=== PATIENT | female | born 1935 | race Caucasian/White ===

== ENCOUNTER → 2023-04-22 06:24 | Day surgery (SDC) | payer OTHER, SELFPAY | LOC: GI 06:24 | PROVIDERS: ATTENDING PHYSICIAN Specialist | DX: K20.90 Esophagitis, unspecified without bleeding (principal); R13.10 Dysphagia, unspecified | CPT/HCPCS: 43239; 88305 ==

== ENCOUNTER → 2023-06-08 11:22 | Outpatient (REF) | payer OTHER, SELFPAY | LOC: WDC 11:22 | PROVIDERS: ATTENDING PHYSICIAN Internal Medicine | DX: Z12.31 Encounter for screening mammogram for malignant neoplasm of breast (principal) | CPT/HCPCS: 77063; 77067 ==

== ENCOUNTER → 2024-02-12 14:14 | Outpatient (REF) | payer OTHER, SELFPAY | LOC: RAD 14:14 | PROVIDERS: ATTENDING PHYSICIAN Internal Medicine Rheumatology; FAMILY PHYSICIAN Hospitalist | DX: M81.0 Age-related osteoporosis without current pathological fracture (principal) | CPT/HCPCS: 77080 ==

== ENCOUNTER → 2024-06-20 11:41 | Outpatient (REF) | payer OTHER, SELFPAY | LOC: RAD 11:41 | PROVIDERS: ATTENDING PHYSICIAN Internal Medicine Rheumatology; FAMILY PHYSICIAN Hospitalist | DX: M17.10 Unilateral primary osteoarthritis, unspecified knee (principal) | CPT/HCPCS: 73560; 73565 ==

== ENCOUNTER 2024-10-08 16:53 | Emergency (ER) | payer OTHER, SELFPAY ==
[2024-10-08 17:02] VITALS: BP 170/79
--- NOTE | 2024-10-08 20:28 | ED.GENMED ---
History of Present Illness
General
Chief Complaint: Fall
Source: patient
Exam Limitations: none
Time Seen by Provider: 10/08/24 20:13
History of Present Illness
History of Present Illness:
88yoF with a history of hypothyroidism and prior thyroid resection presenting for evaluation after a fall about 5 hours ago. Patient was at a shopping center outside when she did not see a flower bed and tripped. She landed on her face and struck
the sidewalk. No LOC. Patient is presenting with facial abrasions. She does not take any blood thinners. Tetanus shot is up to date.
Past History
Past History
ED Past Medical History: Hypothyroidism
ED Past Surgical History: Appendectomy, Cholecystectomy and Gynecological
Social History
Tobacco: Non-smoker
Drug: None
Personal:
Phy Exam
General Physical Exam
General Presentation: well appearing and no apparent distress
General Skin: warm and dry
General Habitus: normal
General Mental: alert
ENT Exam
ENT Exam: other (Scattered facial abrasions. Approx 2cm laceration noted to upper lip with some venous oozing. Developing L periorbital ecchymosis. +Nasal tenderness and swelling)
Additional ENT: No cervical spine tenderness
Eye Exam
Eye Exam: PERRL
Pulmonary Exam
Pulmonary Exam: no respiratory distress
Neurological Exam
Neurological Exam: alert
[place] Coma Scale
Eye Opening: Spontaneous
Verbal Response: Oriented
Motor Response: Obeys Commands
GCS Total Score: 15
Musculoskeletal Exam
Musculoskeletal Exam: other (Ecchymosis to L foot)
Skin Exam
Skin Exam: warm/dry
Psychiatric Exam
Psychiatric Exam: normal mood/affect
Course
Orders/Labs/Results
Orders:
Orders
10/08/24 17:04
CT Cervical Spine W/o Iv Contr Urgent
Comment:
Reason For Exam: fall
CT Facial Bones W/o Iv Contras Urgent
Comment:
Reason For Exam: fall
CT Head W/o Iv Contrast Urgent
Comment:
Reason For Exam: fall
10/08/24 20:27
Lidocaine/Epinephrine/Tetracai [Let Topical Anesthetic Gel] 3 ml TOPICAL NOW STA
10/08/24 21:07
Cephalexin Monohydrate [Keflex] 500 mg PO NOW STA
Vital Signs
Initial and Last Documented VS:
Initial Vital Signs
Temp Pulse Resp BP Pulse Ox
98.8 F 93 19 170/79 97
10/08/24 17:02 10/08/24 17:02 10/08/24 17:02 10/08/24 17:02 10/08/24 17:02
Last Documented Vital Signs
Temp Pulse Resp BP Pulse Ox
98.8 F 84 18 170/79 98
10/08/24 17:02 10/08/24 21:42 10/08/24 21:42 10/08/24 17:02 10/08/24 21:42
Procedures
Laceration Closure
Upper Lip:
Status of Wound: clean
Size of Wound in cm: 2
Description of Wound Edges: ragged
Preparation: cleaned with saline
Anesthesia: Topical-LET
Wound exploration: explored to base- no FB
Type of Closure: single layer closure
Skin Closure Material: 6-0 nylon
Number of sutures: 2
MDM/Problems Addressed
Differential Diagnosis Includes:
88yoF presenting with facial trauma after mechanical fall. Scattered abrasions and ecchymosis noted. There is a 2cm upper lip laceration that is mildly gaping. Differential diagnosis includes: fracture, soft tissue injury, intracranial hemorrhage
CT head, facial bones, and cervical spine obtained in triage. Hairline L nasal bone fracture present without other fractures/hemorrhage. Incidental findings of lung nodule and R thyroid nodule noted. Patient informed of incidentals and was provided
with a copy of the radiology report. Lip laceration repaired as above. She does have L foot ecchymosis on exam but no associated tenderness and has been ambulating well. Offered x-rays of foot which she declines. She was started on a course of
Keflex. She was instructed to have sutures removed in 5 days and return to the ER with any signs of infection.
*Pulse Oximetry
SaO2: 97
Oxygen Mode of Delivery: Room air
Patient hypoxic: no (97%)
*Critical Care Note
Total Time (30-74mins, 75-104mins- exclusive of procedures): Not Applicable
ED Attending Note
-
Portions of this chart may have been created with voice recognition software.� Occasional wrong word or��sound alike� substitutions may have occurred due to the inherent limitations of voice recognition software.
Discharge Plan
Departure
Patient Disposition: Home (Routine Discharge)
Date of Disposition: 10/08/24
Time of Disposition: 21:07
Patient with high blood pressure during this ER visit?: Yes
Discharge Problem:
Ground-level fall, Fracture of nasal bone, Facial abrasion, Lip laceration, Incidental lung nodule
Instructions: Laceration Repair With Stitches (DC), Nose Fracture ED
Prescriptions:
New
cephalexin 500 mg capsule
500 mg PO Q6H 5 Days Qty: 20 0RF
No Action
multivitamin Tablet
1 tab PO DAILY
levothyroxine 25 mcg Tablet
25 mcg PO DAILY
acetaminophen [Tylenol Arthritis] 650 mg Tablet Extended Release
1,300 mg PO Q12H
acetaminophen 500 mg Capsule
1,000 mg PO Q6H PRN (Reason: pain)
cholecalciferol (vitamin D3) [Vitamin D3] 25 mcg (1,000 unit) Capsule
25 mcg PO DAILY
Prolia 60 mg/mL Syringe
60 mg SC [id number]
cranberry
1 dose PO DAILY
mupirocin 2 % ointment
1 applic topical BID Qty: 1 0RF
Referrals:
Nichol Deshpande MD [Family Provider, Internal Medicine]
Activity Restrictions/Additional Instructions:
Keep wounds clean and dry. Take antibiotics as prescribed. Sutures need to be removed in 5 days.
Please follow-up with your family doctor next week. Return to the ER with any signs of infection or worsening symptoms.
Interventions
Interventions:
*Risk Screen - Suicide Last Done: 10/08/24 17:02
*General Assessment Last Done: 10/08/24 21:43
*Neglect/Abuse Screening Last Done: 10/08/24 17:02
*ED- Fall Risk Assessment Last Done: 10/08/24 17:02
*ED COVID-19 Vaccine History Last Done: 10/08/24 20:33
*Nursing Disposition Last Done: 10/08/24 21:43
ED-Musculoskeletal Assessment Last Done: 10/08/24 20:32
ED- Neurological Assessment Last Done: 10/08/24 20:32
ED-Skin Assessment Last Done: 10/08/24 20:32
Discharge Date and Time
Discharge Date/Time: 10/08/24 21:44
Print Language: MALAY
[2024-10-08] MEDS: LET TOPICAL ANESTHETIC GEL 3 ML TOPICAL (20:31)
[2024-10-08] MEDS: KEFLEX 500 MG PO (21:34)
== END 2024-10-08 21:44 | disposition home or self-care (01) ==
LOC: EMR 16:53
PROVIDERS: EMERGENCY PHYSICIAN Emergency Medicine; FAMILY PHYSICIAN Hospitalist
DX: S02.2XXA Fracture of nasal bones, initial encounter for closed fracture (principal); S00.81XA Abrasion of other part of head, initial encounter; S01.511A Laceration without foreign body of lip, initial encounter; W18.09XA Striking against other object with subsequent fall, initial encounter; Y92.513 Shop (commercial) as the place of occurrence of the external cause; R91.1 Solitary pulmonary nodule; E03.9 Hypothyroidism, unspecified; Z90.49 Acquired absence of other specified parts of digestive tract
CPT/HCPCS: 12011; 99284; 70450; 70486; 72125

== ENCOUNTER 2024-10-31 06:05 | Day surgery (SDC) | payer OTHER, SELFPAY ==
--- NOTE | 2024-10-03 10:26 | CM ---
Demographics: Confirmed
Living situation: lives with significant other and daughter will be available
Support Person Post Operatively: Significant other, Steve
History of
VN: No
SNF: No
Outpatient: [facility], appointment made for 11.03
Has patient purchased required equipment: yes, can, walker
PCP: Jeramy Beltrán
Pharmacy: [facility]
Post Operative Discharge Plan: Home with [facility], and then transition to [facility]
[2024-10-10 14:05] VITALS: BMI 24.3
[2024-10-10 14:17] LABS: Hematocrit 37.5 % (37.0-47.0); Hemoglobin 12.0 g/dL (12.0-16.0); Mean Corp Hgb Conc. 32.0 g/dL (33.0-37.0); Mean Corpuscular Volume 92.1 fL (81.0-99.0); Platelet Count 124 10^3/uL (130-400); Red Cell Dist. Width 13.1 % (11.5-14.5)
[2024-10-10 14:37] LABS: ALT (SGPT) 17 U/L (0-35); AST (SGOT) 22 U/L (14-36); Albumin 4.0 g/dl (3.5-5.0); Alkaline Phosphatase 60 U/L (38-126); Blood Urea Nitrogen 26 mg/dl (7-17); Calcium 11.1 mg/dl (8.4-10.2); Carbon Dioxide 28 mmol/L (22-30); Chloride 105 mmol/L (98-107); Estimated Creatinine Clearance 48 ml/min; Glucose 129 mg/dl (70-99); Potassium 4.6 mmol/L (3.5-5.1); Sodium 138 mmol/L (135-145); Total Protein 6.8 g/dl (6.3-8.2); eGFR > 60.00
[2024-10-10 16:07] LABS: Vitamin D, 25-OH*** 52.8 ng/mL (30-80)
[2024-10-10 16:21] LABS: TSH 0.53 uIU/ml (0.47-4.68)
[2024-10-11 09:00] LABS: Glycohemoglobin (HgbA1c) 6.3 % (4.0-5.6)
[2024-10-11 16:17] VITALS: BMI 24.3
--- NOTE | 2024-10-17 10:27 | VNURNOTE ---
Patient is scheduled for an elective R TKA on 10/31 - she is a same day patient with Dr Yung. Spoke with patient prior to surgery. Introduced role of [facility] Liaison. Patient reports that she lives with sig other in a MULTI story home.
There is a bathroom and bedroom on first floor.
She has a cane and rolling walker.
PCP is Nichol Deshpande
Discussed SDS joint protocol and post surgical plans.
Reviewed that she will have VN services initially and will then start outpatient PT.
Patient selects [facility] for her home care needs and will go to [facility] for outpatient PT. Scheduled for 11/03.
Patient is in agreement with plan and states that her sig other and daughter will be home with her. Advised to bring RW day of surgery. Referral placed in [facility].
Plan: [facility] per SDS joint protocol 10/31 then outpt PT on 11/03
[2024-10-31] VITALS (11 sets, daily range): BP systolic 87–142; BP diastolic 60–74; PULSE 62; O2SAT 98; BMI 24.3
[2024-10-31] MEDS: TYLENOL 650 MG PO (07:02)
[2024-10-31] MEDS: CELEBREX 200 MG PO (07:03)
[2024-10-31] MEDS: NORMOSOL-R/PLASMALYTE-A 1000 IV (07:21)
--- NOTE | 2024-10-31 07:51 | W.DS.TRANS ---
DC Summary - [employer]
-
Discharge Instructions:
Sleep Apnea Risk Low
Discharge Diagnosis/Procedures R TKA Dr. Yung 10/31/24
Diet As tolerated
Activity With Walker
Driving Restrictions No driving
Bathing Restrictions OK to Shower
Other Services PT
Instructions:
Stand-Alone Forms: SDS Total Hip and Knee D/C
Changes to Home Medications: Yes
Discharge Medications:
DC Medications w/original date entered in [employer]
cholecalciferol (vitamin D3) 25 mcg (1,000 unit) capsule (Vitamin D3) 25 mcg PO DAILY 10/07/24
cranberry 1 dose PO DAILY 10/07/24
denosumab 60 mg/mL subcutaneous syringe (Prolia) 60 mg SC [id number] 10/07/24
levothyroxine 25 mcg tablet 25 mcg PO DAILY 10/07/24
multivitamin 1 tab PO DAILY 10/07/24
Held on 10/31/24. Instructions: Resume on 11/08/24.
mupirocin 2 % topical ointment 1 applic topical BID infection prevention #1 tube 10/07/24
celecoxib 100 mg capsule 100 mg PO DAILY Anti-inflammatory #14 caps 10/10/24
dexamethasone 4 mg tablet 4 mg PO BID inflammation #6 tabs 10/10/24
famotidine 20 mg tablet 20 mg PO HS GI prophylaxis #30 tabs 10/10/24
gabapentin 300 mg capsule 300 mg PO HS sleep/pain #10 caps 10/10/24
ondansetron 4 mg disintegrating tablet 4 mg PO Q6H PRN n/v #20 tabs 10/10/24
sulfamethoxazole 800 mg-trimethoprim 160 mg tablet (Bactrim DS) 1 tab PO BID infection prevention #10 tabs 10/10/24
tramadol 50 mg tablet 50 mg PO Q6H PRN 1 tab moderate pain, 2 if severe #30 tabs 10/10/24
Saccharomyces boulardii 250 mg capsule (Florastor) 250 mg PO BID #1 cap 10/31/24
acetaminophen 500 mg capsule 1,000 mg (2 x 500 mg) PO QID #0 caps 10/31/24
aspirin 325 mg tablet 325 mg PO DAILY blood clot prevention #1 tab 10/31/24
docusate sodium 100 mg capsule (Colace) 100 mg PO BID stool softner #1 cap 10/31/24
magnesium hydroxide 400 mg/5 mL oral suspension (Milk of Magnesia) 30 ml PO HS PRN constipation #1 mL 10/31/24
sennosides 8.6 mg tablet (Senokot) 17.2 mg (2 x 8.6 mg) PO BID laxative #2 tabs 10/31/24
Home Medication Changes
Held on 10/31/24. Instructions: Resume on 11/08/24.
mupirocin 2 % topical ointment 1 applic topical BID infection prevention #1 tube 10/07/24
celecoxib 100 mg capsule 100 mg PO DAILY Anti-inflammatory #14 caps 10/10/24
dexamethasone 4 mg tablet 4 mg PO BID inflammation #6 tabs 10/10/24
famotidine 20 mg tablet 20 mg PO HS GI prophylaxis #30 tabs 10/10/24
gabapentin 300 mg capsule 300 mg PO HS sleep/pain #10 caps 10/10/24
ondansetron 4 mg disintegrating tablet 4 mg PO Q6H PRN n/v #20 tabs 10/10/24
sulfamethoxazole 800 mg-trimethoprim 160 mg tablet (Bactrim DS) 1 tab PO BID infection prevention #10 tabs 10/10/24
tramadol 50 mg tablet 50 mg PO Q6H PRN 1 tab moderate pain, 2 if severe #30 tabs 10/10/24
Saccharomyces boulardii 250 mg capsule (Florastor) 250 mg PO BID #1 cap 10/31/24
acetaminophen 500 mg capsule 1,000 mg (2 x 500 mg) PO QID #0 caps 10/31/24
aspirin 325 mg tablet 325 mg PO DAILY blood clot prevention #1 tab 10/31/24
docusate sodium 100 mg capsule (Colace) 100 mg PO BID stool softner #1 cap 10/31/24
magnesium hydroxide 400 mg/5 mL oral suspension (Milk of Magnesia) 30 ml PO HS PRN constipation #1 mL 10/31/24
sennosides 8.6 mg tablet (Senokot) 17.2 mg (2 x 8.6 mg) PO BID laxative #2 tabs 10/31/24
Pending Results: No
[2024-10-31] MEDS: ANCEF 5 IV (12:10)
== END 2024-10-31 12:50 | disposition home or self-care (01) ==
LOC: SDS 06:05
PROVIDERS: ATTENDING PHYSICIAN Specialist; FAMILY PHYSICIAN Hospitalist; OTHER PHYSICIAN Physician Assistant Medical
DX: M17.11 Unilateral primary osteoarthritis, right knee (principal); M81.0 Age-related osteoporosis without current pathological fracture; N39.0 Urinary tract infection, site not specified
CPT/HCPCS: 27447; 36415; 73560; 80053; 82306; 83036; 84443; 85027; 87070; 93005; 97162; C1713; C1776